=== PATIENT | male | born 1955 | race Caucasian/White ===

== ENCOUNTER 2020-07-11 19:30 | Outpatient (CLI) | payer MEDICARE, BC | END 2020-07-11 19:31 | disposition home or self-care (01) | LOC: SLEEPLAB 19:30 | PROVIDERS: ATTEND Family Medicine | DX: G47.33 Obstructive sleep apnea (adult) (pediatric) (principal); R06.83 Snoring; G47.10 Hypersomnia, unspecified; K21.9 Gastro-esophageal reflux disease without esophagitis; G47.00 Insomnia, unspecified; I78.0 Hereditary hemorrhagic telangiectasia | CPT/HCPCS: 95810 ==

== ENCOUNTER 2020-07-18 19:00 | Outpatient (CLI) | payer MEDICARE, BC | END 2020-07-18 19:01 | disposition home or self-care (01) | LOC: SLEEPLAB 19:00 | PROVIDERS: ATTEND Family Medicine | DX: G47.33 Obstructive sleep apnea (adult) (pediatric) (principal); R06.83 Snoring; G47.10 Hypersomnia, unspecified; E66.9 Obesity, unspecified; Z68.27 Body mass index [BMI] 27.0-27.9, adult | CPT/HCPCS: 95811 ==

== ENCOUNTER 2025-01-24 09:35 | Outpatient (CLI) | payer MEDICARE, BC | END 2025-01-24 09:36 | disposition home or self-care (01) | LOC: SCSRAD 09:35 | PROVIDERS: ATTEND Family Medicine | DX: I78.0 Hereditary hemorrhagic telangiectasia (principal) | CPT/HCPCS: 71046 ==